=== PATIENT | female | born 1995 | race Caucasian/White ===

== ENCOUNTER 2023-08-12 08:39 | Inpatient (IN) ==
[2023-08-12] MEDS ORDERED: Buffered Lidocaine 1% SYRIN 1 ml INTRADERM ONE (10:10)
[2023-08-12] MEDS ORDERED: Lidocaine 1% VIAL 10 MG/ML 30 ML VIAL INJ PRN (10:10)
[2023-08-12] MEDS ORDERED: Lactated Ringers 1000 ml BAG 1,000 ML IV ONE (10:10)
[2023-08-12] MEDS ORDERED: Lactated Ringers 1000 ml BAG 1,000 ML IV SCH (11:00)
[2023-08-12 12:26] LABS: Urine Benzodiazepine Screen None Detected (None Detect); Urine Cannabinoids Screen None Detected (None Detect); Urine Opiates Screen None Detected (None Detect)
[2023-08-12] MEDS ORDERED: Witch Hazel PAD JAR TOPICAL PRN (12:56)
[2023-08-12] MEDS ORDERED: Glycerin ADULT 2.4 gm SUPP PR PRN (12:56)
[2023-08-12] MEDS: Dibucaine 1% OINT 28.35 GM TUBE PR PRN (20:05)
[2023-08-13 07:01] LABS: ABS Basophils 0.1 10^3/uL (0.0-0.1); ABS Eosinophils 0.1 10^3/uL (0.0-0.5); ABS Lymphocytes 2.6 10^3/uL (1.0-4.8); ABS Monocytes 0.9 10^3/uL (0.0-0.9); ABS Neutrophils 10.6 10^3/uL (1.5-7.6); Eosinophil % 0.8 %; Hematocrit 32.7 % (35-45); Hemoglobin 10.8 g/dL (11.5-14.3); Lymphocyte % 18.5 %; Mean Corpuscular Hemoglobin 27.9 pg (27-33); Mean Corpuscular Hgb Conc 33.1 g/dL (31-36); Mean Corpuscular Volume 84.3 fL (80-97); Platelet Count 256 10^3/uL (150-450); Red Blood Count 3.88 10^6/uL (3.63-4.92); Red Cell Distribution Width 14.6 % (12-17); White Blood Count 14.2 10^3/uL (3.8-11.8)
[2023-08-14 10:09] VITALS: BP 105/64
[2023-08-14] MEDS ORDERED: medroxyPROGESTERone ACETATE 150 MG/ML VIAL IM ONE (10:36)
[2023-08-14] MEDS: Dibucaine 1% OINT 28.35 GM TUBE PR PRN (11:28)
== END 2023-08-14 14:06 | disposition home or self-care (01) | DRG 560 ==
LOC: MCHOBOUT 08:39 → MCHOB 09:18
PROVIDERS: ADMIT Midwife; ATTEND Midwife